=== PATIENT | male | born 1995 | race Caucasian/White ===

== ENCOUNTER 2020-07-12 08:50 | Emergency (ER) | payer OTHER, SELFPAY ==
[2020-07-12 08:54] VITALS: BP 126/78; BP 128/64; PULSE 89; PULSE 90; RESP 12; TEMP 36.5; O2SAT 100; BMI 23.8
--- NOTE | 2020-07-12 09:04 | ECG_ITS ---
Test Reason : CHEST PAIN Blood Pressure : / mmHG Vent. Rate : 087 BPM Atrial Rate : 087 BPM P-R Int : 152 ms QRS Dur : 108 ms QT Int : 398 ms P-R-T Axes : 082 075 048 degrees QTc Int : 478 ms Normal sinus rhythm T wave abnormality, consider anterior ischemia Prolonged QT Abnormal ECG No previous ECGs available Referred By: Courtney Delacruz Electronically Signed By:LITTLE JACOME MD
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
--- NOTE | 2020-07-12 09:53 | PC.NURSE ---
Pt providing conflicting history when asked questions. He at times not making sense. He did not want to have blood work done initially but was educated and reassured by this RN and Courtney ONTIVEROS. Initial stick for blood unsuccessful. Pt then decided to leave AMA because he states that they did blood recently and it was negative . Pt did not have IV in place. Courtney ONTIVEROS aware of pt leaving AMA.
== END 2020-07-12 10:08 | disposition left against medical advice (07) ==
PROVIDERS: Emergency Provider Emergency Medicine
DX: R07.9 Chest pain, unspecified (principal); G89.29 Other chronic pain; M54.5 Low back pain; Z79.891 Long term (current) use of opiate analgesic; J45.909 Unspecified asthma, uncomplicated
CPT/HCPCS: 93005; 99283